=== PATIENT | male | born 1955 | race Caucasian/White ===

== ENCOUNTER → 2017-07-26 | Outpatient (CLI) | payer BC ==
--- NOTE | 2017-07-26 11:37 | NM ---
EXAMINATION TYPE: NM stress cardiolite complete DATE OF EXAM: 07/26/2017 COMPARISON: NONE HISTORY: Chest pain TECHNIQUE: After the intravenous administration of 10.6 mCi Tc 99m Sestamibi - Rest images obtained 50 minutes post injection. The patient exercised using a ARIK protocol and 1 minute prior to peak exercise was injected with 26.7 mCi Tc 99m Sestamibi - Stress images obtained 11 minutes post injecti on. FINDINGS: Targeted heart rate was achieved during performance of the study. Review of stress and rest SPECT collins ges demonstrates no distinct perfusion abnormality. Gated analysis shows normal wall motion with an estimated left ventricular ejection fraction of 67 %. IMPRESSION: No scintigraphic evidence for reversible ischemia, consider echocardiographic correlation for elevate d ejection fraction.
--- NOTE | 2017-07-26 11:52 | EST ---
EXERCISE STRESS AGE: 62 SEX: M HT: 68" WT: 228 PROTOCOL: Cardiolite Stress Test STAGE: II DURATION OF EXERCISE: 7:30 HEART RATE REST: 61 BLOOD PRESSURE REST: 143/92 MAXIMUM HEART RATE ACHIEVED: 150 MAXIMUM BLOOD PRESSURE: 213/95 85% MPHR: 135 100% MPHR: 159 METS: 9.1 INDICATIONS: Chest pain. CLINICAL INFORMATION: Patient was exercised for total period of 7 minutes and 30 seconds. Peak heart rate of 150 was achieved. Maximum blood pressure of 213/95 mmHg was noted. Patient did not complain of any chest pain during the test. Resting EKG shows normal sinus rhythm with normal OK interval and QRS duration and normal ST-T waves. No ST-segment depression suggestive of ischemia was noted. Test was terminated because patient got short of breath. FINAL IMPRESSION: 1. This exercise test is not suggestive of ischemia. 2. Patient's exercise tolerance is normal. 3. Patient did not complain of any anginal pain during the test. 4. The results of the nuclear study will follow. MMKALPANA / DYLONN: [id number] /
== END | disposition home or self-care (01) ==
LOC: RADNMMAIN 07:45
PROVIDERS: ATTEND Family Medicine
DX: R07.9 Chest pain, unspecified (principal); M25.522 Pain in left elbow
CPT/HCPCS: 93017; 78452; A9500

== ENCOUNTER 2020-04-21 17:36 | Emergency (ER) | payer BC ==
[2020-04-21 17:45] VITALS: BP 150/93; PULSE 81; RESP 16; TEMP 98.2
[2020-04-21] MEDS ORDERED: DIPH,PERTUS(ACELL)TETVAC-LF 0.5 ML VIAL IM ONE (17:55)
[2020-04-21] MEDS ORDERED: BACITRACIN OINT 1 EACH PACKET TOPICAL ONE (17:55)
[2020-04-21] MEDS ORDERED: LIDOCAINE 1% INJ 10MG/ML (20 ML MDV) SQ ONE (17:55)
--- NOTE | 2020-04-21 18:21 | ED ---
Wound/Laceration HPI - General Chief Complaint: Wound/Laceration Stated Complaint: Leg injury Time Seen by Provider: 04/21/20 17:49 Source: patient Mode of arrival: wheelchair Limitations: no limitations - History of Present Illness Initial Comments: Patient is a 64-year-old male presenting to emergency Department after he fell 3-4 feet off of a ladder and has a wound to his right lower leg. Patient states he just lost his balance and fell forward and his right lower leg landed on top of the ladder. Patient denies hitting his head, no neck pain, no chest pain or abdominal pain. He states his only discomfort is in his right lower leg from the laceration as well as some mild pain in his right third digit. He has full range of motion of his right hand. He denies being on blood thinners. He denies any other injuries from this fall. He does not remember his last tetanus vaccine. He has no further complaints at this time. - Related Data Home Medications Medication Instructions Recorded Confirmed Levothyroxine Sodium [Synthroid] 100 mcg PO DAILY 04/21/20 04/21/20 Travoprost [Travatan Z 0.004%] 1 drop BOTH EYES HS 04/21/20 04/21/20 Allergies Allergy/AdvReac Type Severity Reaction Status Date / Time No Known Allergies Allergy Verified 04/21/20 18:27 Review of Systems ROS Statement: Those systems with pertinent positive or pertinent negative responses have been documented in the HPI. ROS Other: All systems not noted in ROS Statement are negative. Past Medical History Past Medical History: No Reported History History of Any Multi-Drug Resistant Organisms: None Reported Past Surgical History: No Surgical Hx Reported Past Psychological History: No Psychological Hx Reported Smoking Status: Never smoker Past Alcohol Use History: Occasional Past Drug Use History: Marijuana General Exam - General Exam Comments Initial Comments: GENERAL: Patient is well-developed and well-nourished. Patient is nontoxic and in no acute distress. HEAD: Atraumatic, normocephalic. No hematomas, no signs of basal skull fracture. EYES: Pupils equal round and reactive to light, extraocular movements intact, sclera anicteric, conjunctiva are normal. Eyelids were unremarkable. ENT: TMs normal, nares patent, oropharynx clear without exudates. Moist mucous membranes. NECK: Normal range of motion, supple without lymphadenopathy or JVD. No midline tenderness. LUNGS: Unlabored respirations. Breath sounds clear to auscultation bilaterally and equal. No wheezes rales or rhonchi. HEART: Regular rate and rhythm without murmurs, rubs or gallops. ABDOMEN: Soft, nontender, normoactive bowel sounds. No guarding, no rebound. No masses appreciated. : Deferred MUSCULOSKELETAL: Normal extremities with adequate strength and normal range of motion, no pitting or edema. No clubbing or cyanosis. NEUROLOGICAL: Patient is alert and oriented x 3. Motor and sensory are also intact. Cranial nerves II through XII grossly intact. Symmetrical smile. Normal speech, normal gait. PSYCH: Normal mood, normal affect. SKIN: Warm, Dry, normal turgor, no rashes. Patient has a V shaped wound on the right lower leg that is 6 cm x 6 cm. There is some mild bleeding that is controlled with a bandage. She has a very small abrasion to the left lower leg that does not require any sutures, no active bleeding. Limitations: no limitations Course Vital Signs 04/21/20 17:40 Temperature 98.2 F Pulse Rate 81 Respiratory 16 Rate Blood Pressure 150/93 O2 Sat by Pulse 96 Oximetry Procedures - Laceration Laceration #1 Consent Obtained: verbal consent Indication: laceration Site: lower extremity (Right lower leg) Size (cm): 12 Description: flap, irregular Depth: simple, single layer Anesthetic Used: lidocaine 1% Anesthesia Technique: local infiltration Amount (mls): 8 Pre-repair: irrigated extensively Type of Sutures: nylon Size of Sutures: 4-0 Number of Sutures: 19 Technique: simple, interrupted Patient Tolerated Procedure: well Medical Decision Making - Medical Decision Making Patient is 64-year-old male presenting after he fell and has a 12 cm V-shaped laceration on his right lower leg. He is not on blood thinners. His tetanus vaccine was updated today. No other injuries from this fall. Bleeding was controlled with bandage. Patient's wound was cleaned, closed with 19, 4-0 sutures. Patient tolerate procedure very well. Did apply a dressing as well. He will have sutures removed in approximately 10 days, keep area clean and dry. He is stable for discharge. Patient is agreeable with this plan of care. Return parameters were discussed with the patient he verbalizes understanding. Case discussed with Dr. Pritchett. Disposition Clinical Impression: Laceration of right lower leg, Fall Disposition: HOME SELF-CARE Condition: Stable Instructions (If sedation given, give patient instructions): Care For Your Stitches (ED) Additional Instructions: Please return to the Emergency Department if symptoms worsen or any other concerns. Stitches need to be removed in approximately 10 days. Keep wound clean and dry. May apply topical antibiotic once a day. Is patient prescribed a controlled substance at d/c from ED?: No Referrals: Aleksandar Bone MD [Primary Care Provider] - 1-2 days
== END 2020-04-21 20:02 | disposition home or self-care (01) ==
LOC: EC 17:36
DX: S81.811A Laceration without foreign body, right lower leg, initial encounter (principal); Z79.899 Other long term (current) drug therapy; Z79.890 Hormone replacement therapy; Z23 Encounter for immunization; W11.XXXA Fall on and from ladder, initial encounter; Y92.009 Unspecified place in unspecified non-institutional (private) residence as the place of occurrence of the external cause
CPT/HCPCS: 90715; 99282; 12004; 90471; J2001

== ENCOUNTER → 2020-08-06 | Outpatient (CLI) | payer BC ==
--- NOTE | 2020-08-06 09:58 | FL ---
EXAMINATION TYPE: FL barium swallow DATE OF EXAM: 08/06/2020 CLINICAL HISTORY: Dysphagia. TECHNIQUE: A double contrast esophagram is performed utilizing air and barium. A total of roughly 4 5 seconds of fluoroscopic time was utilized during procedure and 50 images obtained COMPARISON: None FINDINGS: The esophagus shows satisfactory motility and emptying into the stomach. No diverticulum. This is intraluminal mass. Small sliding-type sliding type hiatal Hernia towards end of study. No stricture noted. No significant gastroesophageal reflux was seen duri ng real time performance of this study. IMPRESSION: No significant abnormality is seen to account for patient's symptoms.
== END | disposition home or self-care (01) ==
LOC: RADUSWWP 08:51
PROVIDERS: ATTEND Otolaryngology
DX: R13.10 Dysphagia, unspecified (principal); J31.2 Chronic pharyngitis; M54.2 Cervicalgia
CPT/HCPCS: 74220

== ENCOUNTER 2020-08-20 09:43 | Day surgery (SDC) | payer BC ==
[2020-08-18 16:26] VITALS: BMI 35.2
[2020-08-20 10:37] VITALS: TEMP 98.1
[2020-08-20] MEDS: LACTATED RINGERS 1,000 ML IV SCH ×2 (10:37→11:27)
[2020-08-20] MEDS ORDERED: LIDOCAINE 1% (10MG/ML) FOR IV START INTRADERMA ONE (10:38)
[2020-08-20] MEDS ORDERED: PROPOFOL 10 MG/ML 20 ML VIAL IV ONE (11:28)
[2020-08-20] MEDS ORDERED: LIDOCAINE 1% INJ 10MG/ML (20 ML MDV) ONE (11:28)
--- NOTE | 2020-08-20 11:35 | P.GSHP ---
History of Present Illness H&P Date: 08/20/20 Chief Complaint: GERD This a 65-year-old male who presents today for EGD. He's had issues with GERD. Past Medical History Past Medical History: Eye Disorder, Thyroid Disorder Additional Past Medical History / Comment(s): BILAT GLAUCOMA, FEELS LIKE THERE IS ALWAYS SOMETHING STUCK IN THROAT, HAVING TROUBLE SWALLOWING AT TIMES History of Any Multi-Drug Resistant Organisms: None Reported Past Surgical History: Cholecystectomy, Tonsillectomy Additional Past Surgical History / Comment(s): POLYP REMOVED FROM TONSILS, COLONOSCOPY/EGD Past Anesthesia/Blood Transfusion Reactions: No Reported Reaction Smoking Status: Never smoker - Past Family History Mother Family Medical History: Cancer Medications and Allergies Home Medications Medication Instructions Recorded Confirmed Type Levothyroxine Sodium [Synthroid] 100 mcg PO DAILY 04/21/20 08/18/20 History Travoprost [Travatan Z 0.004%] 1 drop BOTH EYES HS 04/21/20 08/18/20 History Allergies Allergy/AdvReac Type Severity Reaction Status Date / Time No Known Allergies Allergy Verified 08/18/20 16:16 Surgical - Exam Vital Signs Temp Pulse Resp BP Pulse Ox 98.1 F 66 16 167/83 98 08/20/20 10:35 08/20/20 10:35 08/20/20 10:35 08/20/20 10:35 08/20/20 10:35 - General well developed, well nourished, no distress - Eyes PERRL - ENT normal pinna - Neck no masses - Respiratory normal expansion - Cardiovascular Rhythm: regular - Abdomen Abdomen: soft, non tender Assessment and Plan Assessment: GERD. We'll perform EGD.
--- NOTE | 2020-08-20 11:41 | P.OP ---
Date of Procedure: 08/20/20 Preoperative Diagnosis: GERD Postoperative Diagnosis: Antral gastritis Hiatal hernia Esophagitis Procedure(s) Performed: EGD Anesthesia: MAC Surgeon: Ricky Moeller Pathology: other (Antrum, esophagus) Condition: stable Disposition: PACU Description of Procedure: The patient's placed on the endoscopy table in the lateral position. He received IV sedation. The gastroscope placed oropharynx passed in the esophagus and stomach. Scope was placed through the pylorus. The first and second portion of the duodenum appeared normal. Scope was then brought back the antrum this. Mildly inflamed. A biopsies performed. Scope was then retroflexed the meters stomach appeared normal. There was a moderate size sliding hiatal hernia. The GE junction was at 39 cm. The distal esophagus inflamed a biopsies performed. The proximal esophagus appeared normal. The scope was withdrawn for patient.
[2020-08-20 12:02] VITALS: BP 119/77; PULSE 59; RESP 18
== END 2020-08-20 12:14 | disposition home or self-care (01) ==
LOC: ORWHC2ENDO 09:43
PROVIDERS: ATTEND Surgery
DX: K29.50 Unspecified chronic gastritis without bleeding (principal); K21.00 Gastro-esophageal reflux disease with esophagitis, without bleeding; R13.14 Dysphagia, pharyngoesophageal phase; K44.9 Diaphragmatic hernia without obstruction or gangrene; E03.9 Hypothyroidism, unspecified; H40.9 Unspecified glaucoma; Z79.890 Hormone replacement therapy; Z79.899 Other long term (current) drug therapy
CPT/HCPCS: 88305; 43239; J2001; J2704

== ENCOUNTER → 2020-09-04 | Outpatient (CLI) | payer BC ==
[2020-09-04 13:50] LABS: Basophils % (A) 1 %; Eosinophils # (A) 0.2 k/uL (0-0.7); Eosinophils % (A) 2 %; HCT 45.2 % (39.0-53.0); HGB 15.9 gm/dL (13.0-17.5); Lymphocytes # (A) 2.4 k/uL (1.0-4.8); Lymphocytes % (A) 33 %; MCH 30.5 pg (25.0-35.0); MCHC 35.1 g/dL (31.0-37.0); MCV 86.9 fL (80.0-100.0); Mean Platelet Volume 8.3; Monocytes # (A) 0.3 k/uL (0-1.0); Monocytes % (A) 5 %; Neutrophils # (A) 4.1 k/uL (1.3-7.7); Neutrophils % (A) 58 %; Platelet Count 160 k/uL (150-450); RBC 5.19 m/uL (4.30-5.90); RDW 13.1 % (11.5-15.5); WBC 7.2 k/uL (3.8-10.6)
== END | disposition home or self-care (01) ==
LOC: LABWHC1 13:00
PROVIDERS: ATTEND Surgery
DX: Z01.818 Encounter for other preprocedural examination (principal); K21.00 Gastro-esophageal reflux disease with esophagitis, without bleeding
CPT/HCPCS: 36415; 85025; 93005

== ENCOUNTER 2020-09-17 17:59 | Emergency (ER) | payer BC ==
--- NOTE | 2020-09-17 19:47 | ED ---
General Adult HPI - General Chief complaint: Upper Respiratory Infection Stated complaint: SOB Time Seen by Provider: 09/17/20 19:28 Source: patient Mode of arrival: ambulatory Limitations: no limitations - History of Present Illness Initial comments: 65-year-old male presents emergency Department with a chief complaint of cough and congestion. Patient reports he began developing myalgias and generalized fatigue about a days ago and was tested positive for Covid the following day. He states now he is continuing to have the symptoms and is concerned that he might be developing pneumonia. States the cough is continuous nonproductive and is causing him difficulties sleeping. He reports fluctuating fevers that he has been taking Tylenol for. States the last time he took it was at 3 PM today. He does report occasional exertional dyspnea but denies any associated chest pain. No history of smoking, COPD or asthma. He denies any nausea vomiting diarrhea. - Related Data Home Medications Medication Instructions Recorded Confirmed Levothyroxine Sodium [Synthroid] 100 mcg PO DAILY 04/21/20 09/03/20 Travoprost [Travatan Z 0.004%] 1 drop BOTH EYES HS 04/21/20 09/03/20 Fish Oil/Dha/Epa [Fish Oil 1,200 1 each PO DAILY 09/03/20 mg Fish Oil] Multivitamins, Thera [Multivitamin 1 tab PO DAILY 09/03/20 (formulary)] Allergies Allergy/AdvReac Type Severity Reaction Status Date / Time No Known Allergies Allergy Verified 09/17/20 18:03 Review of Systems ROS Statement: Those systems with pertinent positive or pertinent negative responses have been documented in the HPI. ROS Other: All systems not noted in ROS Statement are negative. Past Medical History Past Medical History: Eye Disorder, GERD/Reflux, Thyroid Disorder Additional Past Medical History / Comment(s): BILATERAL GLAUCOMA, esphogeal tear History of Any Multi-Drug Resistant Organisms: None Reported Past Surgical History: Cholecystectomy Additional Past Surgical History / Comment(s): POLYP REMOVED FROM TONSILS, COLONOSCOPY/EGD Past Anesthesia/Blood Transfusion Reactions: No Reported Reaction Past Psychological History: No Psychological Hx Reported Smoking Status: Never smoker Past Alcohol Use History: None Reported Past Drug Use History: Marijuana - Past Family History Mother Family Medical History: Cancer General Exam Limitations: no limitations General appearance: alert, in no apparent distress, obese Head exam: Present: atraumatic, normocephalic, normal inspection Eye exam: Present: normal appearance, PERRL, EOMI Pupils: Present: normal accommodation ENT exam: Present: normal exam, normal oropharynx, mucous membranes moist Neck exam: Present: normal inspection, full ROM. Absent: tenderness, m eningismus Respiratory exam: Present: normal lung sounds bilaterally. Absent: respiratory distress, wheezes, rales, rhonchi, stridor, chest wall tenderness, accessory muscle use Cardiovascular Exam: Present: regular rate, normal rhythm, normal heart sounds GI/Abdominal exam: Present: soft. Absent: distended, tenderness, guarding, rebound Extremities exam: Present: normal inspection, full ROM, normal capillary refill. Absent: tenderness, pedal edema Back exam: Present: normal inspection, full ROM. Absent: tenderness, CVA tenderness (R), CVA tenderness (L) Neurological exam: Present: alert, oriented X3 Psychiatric exam: Present: normal affect, normal mood Skin exam: Present: warm, dry, intact, normal color Course Vital Signs 09/17/20 09/17/20 18:00 20:34 Temperature 98.3 F Pulse Rate 65 78 Respiratory 20 16 Rate Blood Pressure 143/98 149/91 O2 Sat by Pulse 100 98 Oximetry Medical Decision Making - Medical Decision Making 65-year-old male presents to the emergency department with a chief complaint of cough and congestion. On physical examination, patient does not appear to be in any respiratory distress. Vital signs are within normal limits. He does not have any pleuritic chest pain. Patient does fit the criteria for a monoclonal antibody. He did agree to administering it. He was observed for an hour after administration. covid-19 protocol discussed. Advised to return to emergency department if symptoms worsen. Case discussed with - Lab Data Lab Results 09/17/20 Range/Units 18:06 Coronavirus (PCR) Detected A (Not Detectd) Disposition Clinical Impression: COVID-19 Disposition: HOME SELF-CARE Condition: Stable Instructions (If sedation given, give patient instructions): Coronavirus Disease 2019 (COVID-19) Additional Instructions: Please return to the Emergency Department if symptoms worsen or any other concerns. Is patient prescribed a controlled substance at d/c from ED?: No Referrals: Aleksandar Bone MD [Primary Care Provider] - 1-2 days Time of Disposition: 22:27
[2020-09-17] MEDS ORDERED: SODIUM CHLORIDE 0.9% 50 ML IVPB ONE (20:15)
[2020-09-17] MEDS ORDERED: BAMLANIVIMAB (EUA) 700 MG, ETESEVIMAB (EUA) 1,400 MG in SODIUM CHLORIDE 0.9% 50 ML IVPB ONE (20:15)
[2020-09-17 20:35] VITALS: RESP 16
[2020-09-17 22:37] VITALS: BP 159/85; PULSE 68; TEMP 99.1
== END 2020-09-17 22:36 | disposition home or self-care (01) ==
LOC: EC 17:59
DX: U07.1 COVID-19 (principal); K21.9 Gastro-esophageal reflux disease without esophagitis; F12.90 Cannabis use, unspecified, uncomplicated
CPT/HCPCS: 87635; 99285; 96365; Q0245

== ENCOUNTER 2020-10-07 09:30 | Inpatient (IN) | payer BC ==
[2020-10-14] MEDS ORDERED: ACETAMINOPHEN TAB 500 MG TAB PO PRN (05:00)
[2020-10-14] MEDS ORDERED: HEPARIN SODIUM,PORCINE/PF 5,000 UNIT/0.5 ML SYRINGE SQ PRN (05:00)
[2020-10-14] MEDS ORDERED: LIDOCAINE 1% (10MG/ML) FOR IV START INTRADERMA PRN (06:05)
[2020-10-14] MEDS ORDERED: ONDANSETRON 4 MG/2 ML VIAL IVP ONE (06:05)
[2020-10-14] MEDS ORDERED: DEXAMETHASONE SOD PHOSPHATE 4 MG/ML 1 ML VIAL IV ONE (06:05)
[2020-10-14] MEDS ORDERED: MIDAZOLAM 2 MG/2 ML VIAL IV PRN (06:05)
[2020-10-14] MEDS ORDERED: HYDROmorphone 0.5 MG/0.5 ML SYRINGE IVP PRN (07:00)
[2020-10-14] MEDS: LACTATED RINGERS 1,000 ML IV SCH (10:57)
--- NOTE | 2020-10-14 13:20 | P.GSHP ---
History of Present Illness H&P Date: 10/14/20 Chief Complaint: GERD, dysphagia this a 65-year-old male presents today for laparoscopic hiatal hernia. Patient had complaints of GERD and dysphagia. He has a large sliding hiatal hernia. Past Medical History Past Medical History: Eye Disorder, GERD/Reflux, Thyroid Disorder Additional Past Medical History / Comment(s): BILATERAL GLAUCOMA, esophageal tear. Has had CoVid X2, last 09/11/20, states recovered now. History of Any Multi-Drug Resistant Organisms: None Reported Past Surgical History: Cholecystectomy Additional Past Surgical History / Comment(s): POLYP REMOVED FROM TONSILS, COLONOSCOPY/EGD. Past Anesthesia/Blood Transfusion Reactions: No Reported Reaction Past Psychological History: No Psychological Hx Reported Smoking Status: Never smoker Past Alcohol Use History: Rare Past Drug Use History: Marijuana Additional Drug Use History / Comment(s): RARE MARIJUANA USE -LAST USED JUN 2020, AWARE TO REFRAIN FROM USE FOR 24 HOURS PRIOR TO PROCEDURE. - Past Family History Mother Family Medical History: Cancer Medications and Allergies Home Medications Medication Instructions Recorded Confirmed Type Levothyroxine Sodium [Synthroid] 100 mcg PO QAM 04/21/20 10/14/20 History Travoprost [Travatan Z 0.004%] 1 drop BOTH EYES HS 04/21/20 10/14/20 History Fish Oil/Dha/Epa [Fish Oil 1,200 1 each PO DAILY 09/03/20 10/14/20 History mg Fish Oil] Multivitamins, Thera [Multivitamin 1 tab PO DAILY 09/03/20 10/14/20 History (formulary)] Allergies Allergy/AdvReac Type Severity Reaction Status Date / Time No Known Allergies Allergy Verified 10/14/20 10:38 Surgical - Exam Vital Signs Temp Pulse Resp BP Pulse Ox 98 F 88 18 147/92 97 10/14/20 10:40 10/14/20 10:40 10/14/20 10:40 10/14/20 10:40 10/14/20 10:40 - General well developed, well nourished, no distress - Eyes PERRL - ENT normal pinna, normal nares - Neck no masses - Respiratory normal expansion - Cardiovascular Rhythm: regular - Abdomen Abdomen: soft, non tender Assessment and Plan Assessment: GERD Dysphagia Sliding hiatal hernia We'll perform laparoscopic repair
[2020-10-14] MEDS ORDERED: ROCURONIUM 10 MG/ML (5 ML VIAL) IV ONE (13:35)
[2020-10-14] MEDS ORDERED: ESMOLOL 100 MG/10 ML VIAL ONE (13:35)
[2020-10-14] MEDS ORDERED: GLYCOPYRROLATE 0.2 MG/ML 2 ML VIAL ONE (13:35)
[2020-10-14] MEDS ORDERED: LIDOCAINE 1% INJ 10MG/ML (20 ML MDV) ONE ×2 (13:35)
[2020-10-14] MEDS ORDERED: MIDAZOLAM 2 MG/2 ML VIAL ONE (13:35)
[2020-10-14] MEDS ORDERED: SUCCINYLCHOLINE CHLORIDE VIAL 200 MG/10 ML VIAL IV ONE (13:35)
[2020-10-14] MEDS ORDERED: KETAMINE 10 MG/ML 20 ML VIAL ONE (13:35)
[2020-10-14] MEDS ORDERED: PROPOFOL 10 MG/ML 20 ML VIAL IV ONE (13:35)
[2020-10-14] MEDS ORDERED: HYDROmorphone (PF) 1 MG/ML ONE (13:35)
[2020-10-14] MEDS ORDERED: fentaNYL (PF) 50 MCG/ML 2 ML AMP ONE (13:35)
[2020-10-14] MEDS ORDERED: BUPIVACAINE (PF) 0.25% 30 ML VIAL SQ ONE (14:17)
[2020-10-14] MEDS ORDERED: LACTATED RINGERS 1,000 ML IV ONE (14:18)
[2020-10-14] MEDS ORDERED: HYDROmorphone 1 MG/ML 1 ML SYRINGE IVP PRN (15:03)
--- NOTE | 2020-10-14 15:03 | P.OP ---
Date of Procedure: 10/14/20 Preoperative Diagnosis: GERD Postoperative Diagnosis: Sliding hiatal hernia . Procedure(s) Performed: Laparoscopic Kathy fundal plication Anesthesia: LEONARD Surgeon: Ricky Moeller Estimated Blood Loss (ml): 10 Pathology: none sent Condition: stable Disposition: PACU Description of Procedure: The patient was placed on the operating table in the supine position. The patient received general anesthesia. And was placed in dorsal lithotomy position. The patient was prepped and draped in the usual sterile fashion. The skin incision sites were anesthetized with 1% local Xylocaine. The skin was incised in the left periumbilical area and then using a blade less 5 mm trocar under direct visualization panel cavity was entered. After adequate insufflation the laparoscope was then placed into the peritoneal cavity. Next a 5 mm trochars placed in the right epigastric position. Another 5 millimeter trocar the right lateral position. Another 5 millimeter trocar in the left lateral position a 5 mm trocar is placed in the left epigastric position. And then the initial 5 mm trocar was exchanged for a 10 mm trocar. The left lateral lobe liver was retracted. The hernia was seen. The crural defect was then dissected using the Harmonic scissors device. A 360 crural dissection was performed the esophagus stomach was reduced back into the peritoneal Cavity. The crural defect was then closed using 2-0 Ethibond suture. Next the fundus of the stomach was mobilized using the Calvin scissors device. and then a 58- German bougie dilator was placed oropharynx passed into the esophagus and stomach the fundal plication wrap was then performed by grasping the fundus posteriorly and bringing it around the esophagus and stomach fundoplication was then performed using 2-0 Ethibond suture. Care was taken that the fundal location rested over top of the intra-abdominal esophagus. There was no injury seen to the stomach or esophagus. The dilator was then withdrawn. The abdomen was irrigated there is no bleeding seen. The trochars were then withdrawn and then skin incision sites were closed using 3-0 Monocryl suture Steri-Strips are applied. Patient thought procedure well and sent to recovery room in stable condition.
--- NOTE | 2020-10-14 17:16 | FL ---
EXAMINATION TYPE: FL esophagus cervic/pharynx DATE OF EXAM: 10/14/2020 COMPARISON: None HISTORY: Status post Sly fundoplication TECHNIQUE: Single contrast technique is utilized to evaluate the gastroesophageal junction. FINDINGS: There is mild hesitancy of contrast passing through the gastroesophageal junction and ascen ding fundoplication. No persistent severe stenosis is evident. Contrast passes into the stomach to th e duodenum without hesitancy. No suspicious changes to suggest extravasation are evident. Fluoroscopy time: 53 seconds. Images: 16 IMPRESSION: 1. No obstruction. There is mild hesitancy passing through the kidneys on fundoplication. 2. No extravasation of contrast.
[2020-10-14] MEDS: D5-0.45% NACL WITH KCL 20MEQ/L 1,000 ML IV SCH (17:41)
--- NOTE | 2020-10-15 00:27 | P.CONS ---
History of Present Illness - Reason for Consult Consult date: 10/14/20 medical management post op Requesting physician: Ricky Moeller - Chief Complaint chronic GERD - History of Present Illness 65 year old male , hypothyroid and obesity he is here for edvin fundoplication , he reports that since his COVID infection a year ago, he was left with a nagging hacking cough . he started seeing doctors since the cough did not improve, and he went through EGD and other testing, and a recommendation made to him for surgical intervention due to changes in the esophagus from hiatal hernia and GERD. patient tolerated procedure well, denies any chest pain or trouble breathing ,reports minimal abd pain at surgical site, and worse right shoulder pain . he passed urine but no bowel movement yet. Review of Systems Pertinent positives as noted in HPI. All other systems were reviewed and are negative Past Medical History Past Medical History: Eye Disorder, GERD/Reflux, Thyroid Disorder Additional Past Medical History / Comment(s): BILATERAL GLAUCOMA, esophageal tear. Has had CoVid X2, last 09/11/20, states recovered now. History of Any Multi-Drug Resistant Organisms: None Reported Past Surgical History: Cholecystectomy Additional Past Surgical History / Comment(s): POLYP REMOVED FROM TONSILS, COLONOSCOPY/EGD. Past Anesthesia/Blood Transfusion Reactions: No Reported Reaction Past Psychological History: No Psychological Hx Reported Smoking Status: Never smoker Past Alcohol Use History: Rare Past Drug Use History: Marijuana Additional Drug Use History / Comment(s): RARE MARIJUANA USE -LAST USED JUN 2020, AWARE TO REFRAIN FROM USE FOR 24 HOURS PRIOR TO PROCEDURE. - Past Family History Mother Family Medical History: Cancer Medications and Allergies Home Medications Medication Instructions Recorded Confirmed Type Levothyroxine Sodium [Synthroid] 100 mcg PO QAM 04/21/20 10/14/20 History Travoprost [Travatan Z 0.004%] 1 drop BOTH EYES HS 04/21/20 10/14/20 History Fish Oil/Dha/Epa [Fish Oil 1,200 1 each PO DAILY 09/03/20 10/14/20 History mg Fish Oil] Multivitamins, Thera [Multivitamin 1 tab PO DAILY 09/03/20 10/14/20 History (formulary)] Allergies Allergy/AdvReac Type Severity Reaction Status Date / Time No Known Allergies Allergy Verified 10/14/20 10:38 Physical Exam Vitals: Vital Signs Temp Pulse Pulse Resp BP BP Pulse Ox 10/14/20 19:22 98.1 F 75 18 154/84 96 10/14/20 17:36 71 135/95 10/14/20 17:21 64 142/82 10/14/20 17:06 79 156/90 10/14/20 16:53 87 145/90 10/14/20 16:37 97.9 F 75 149/82 96 10/14/20 16:30 97.9 F 71 16 155/87 96 10/14/20 15:25 80 16 161/84 96 10/14/20 15:10 74 16 147/75 97 10/14/20 14:55 84 16 156/76 98 10/14/20 14:40 97.8 F 103 H 22 194/98 98 10/14/20 10:40 98 F 88 18 147/92 97 Intake and Output 10/14/20 10/14/20 10/14/20 06:59 14:59 22:59 Intake Total 1150 1200 Output Total 10 Balance 1140 1200 Intake: IV 1150 600 Oral 600 Output: Estimated Blood Loss 10 Other: Voiding Method Urinal Weight 108.1 kg Constitutional: No acute distress, conversant, pleasant Eyes: Anicteric sclerae, moist conjunctiva, Pupils equal round reactive to light ENMT: NC/AT Oropharynx clear, no erythema, or exudates Neck: Supple, FROM, no masses, or JVD No carotid bruits No thyromegaly Lungs: Clear to auscultation Clear to percussion Normal respiratory effort, no accessory muscle use Cardiovascular: Heart regular in rate and rhythm, No murmurs, gallops, or rubs No peripheral edema Abdominal: Soft, 4 small surgical wounds for scope entrance site, no surrounding induration , no bruising no bleeding Nontender, no guarding, rebound or rigidity Abdomen moving with respiration Normoactive bowel sounds No hepatomegaly, No splenomegaly No palpable mass No abdominal wall hernia noted Skin: Normal temperature, tone, texture, turgor No induration No subcutaneous nodules No rash, lesions No ulcers Extremities: No digital cyanosis No clubbing Pedal pulses intact and symmetrical Radial pulses intact and symmetrical No calf tenderness Psychiatric: Alert and oriented to person, place and time Appropriate affect fair judgement Neuro Muscles Strength 5/5 in all 4 extremities Sensation to light touch grossly present throughout Cranial nerves II-XII grossly intact No focal sensory deficits Lymphatics: no palpable cervical or supraclavicular , or inguinal lymph nodes Assessment and Plan Assessment: hiatal hernia ,Chronic GERD, s/p edvin fundoplication , post op day zero management per surgical team DVT PPX per gen surgery hypothyroid resume home meds check CBC , CMP, magnesium in AM full code Thank you for allowing us to participate in the care of this patient. Do not hesitate to contact us with questions. Someone can be reached from the [facility] hospitalist group at all hours of the day at [phone].
[2020-10-15] MEDS: ACETAMINOPHEN TAB 325 MG TAB PO PRN ×2 (00:35→07:56)
[2020-10-15] MEDS: D5-0.45% NACL WITH KCL 20MEQ/L 1,000 ML IV SCH ×2 (00:36→07:58)
[2020-10-15] MEDS: LACTATED RINGERS 1,000 ML IV SCH (01:54)
[2020-10-15] MEDS ORDERED: LEVOTHYROXINE 100 MCG TAB PO SCH (06:30)
[2020-10-15 07:29] LABS: Basophils % (A) 0 %; Eosinophils % (A) 0 %; HCT 40.4 % (39.0-53.0); HGB 13.7 gm/dL (13.0-17.5); Lymphocytes # (A) 1.9 k/uL (1.0-4.8); Lymphocytes % (A) 18 %; MCH 29.7 pg (25.0-35.0); MCV 87.2 fL (80.0-100.0); Mean Platelet Volume 8.6; Monocytes # (A) 0.6 k/uL (0-1.0); Monocytes % (A) 6 %; Neutrophils # (A) 7.9 k/uL (1.3-7.7); Neutrophils % (A) 74 %; Platelet Count 144 k/uL (150-450); RBC 4.63 m/uL (4.30-5.90); RDW 13.9 % (11.5-15.5); WBC 10.7 k/uL (3.8-10.6)
--- NOTE | 2020-10-15 13:12 | P.DS ---
Providers Date of admission: 10/14/20 10:24 Expected date of discharge: 10/15/20 Attending physician: Ricky Moeller Consults: 10/14/20 15:03 Consult Physician Routine Consulting Provider: Annelise Martínez Consult Reason/Comments: med manage Do you want consulting provider notified?: Yes Primary care physician: Stated None Hospital Course: Discharge diagnosis 1. Sliding hiatal hernia status post laparoscopic Kathy fundoplication Hospital course This is a 65-year-old male with complaints of GERD and dysphagia. He has a known large sliding hiatal hernia. He is status post laparoscopic Kathy fundoplication. He tolerated surgery well. Upper GI shows no evidence of obstruction. There is mild hesitancy passing through the GE junction and ascending fundoplication. No extravasation of contrast. Patient is tolerating the Kathy clear liquid diet. He is passing gas. He has been up and ambulating. Denies any difficulty urinating. He is afebrile. He is stable for discharge. Please refer to chart for any further details. Physician Commutator Repairer note has been reviewed by physician. Signing provider agrees with the documented findings, assessment, and plan of care. Patient Condition at Discharge: Stable Plan - Discharge Summary Discharge Rx Participant: No New Discharge Prescriptions: New Acetaminophen Tab [Tylenol Tab] 650 mg PO Q4H PRN #30 tablet PRN Reason: Pain Continue Levothyroxine Sodium [Synthroid] 100 mcg PO QAM Travoprost [Travatan Z 0.004%] 1 drop BOTH EYES HS Multivitamins, Thera [Multivitamin (formulary)] 1 tab PO DAILY Fish Oil/Dha/Epa [Fish Oil 1,200 mg Fish Oil] 1 each PO DAILY Discharge Medication List Levothyroxine Sodium [Synthroid] 100 mcg PO QAM 04/21/20 [History] Travoprost [Travatan Z 0.004%] 1 drop BOTH EYES HS 04/21/20 [History] Fish Oil/Dha/Epa [Fish Oil 1,200 mg Fish Oil] 1 each PO DAILY 09/03/20 [History] Multivitamins, Thera [Multivitamin (formulary)] 1 tab PO DAILY 09/03/20 [History] Acetaminophen Tab [Tylenol Tab] 650 mg PO Q4H PRN #30 tablet 10/15/20 [Rx] Follow up Appointment(s)/Referral(s): Ricky Moeller MD [STAFF PHYSICIAN] - 1 Week Activity/Diet/Wound Care/Special Instructions: No lifting over 10 pounds You may shower. No soaking or tub baths for 2 weeks Very light activity until you are reevaluated at your follow up appointment with your surgeon No straws or carbonated beverages Discharge Disposition: HOME SELF-CARE
[2020-10-15 13:42] LABS: Hemoglobin A1C 5.8 % (4.0-6.0)
[2020-10-15 14:30] VITALS: BP 133/80; PULSE 64; RESP 14; TEMP 97.6
[2020-10-15 15:34] VITALS: BMI 35.6
[2020-10-15 15:50] LABS: African American GFR (CKD) 109.4 (60.0-200.0); Albumin 3.9 g/dL (3.80-4.90); Albumin/Globulin Ratio 2.17 (1.60-3.17); Anion Gap 14.4 mmol/L (4.00-12.00); BUN/Creat Ratio 18.75 Ratio (12.00-20.00); Calcium 8.7 mg/dL (8.7-10.3); Carbon Dioxide 21.6 mmol/L (21.6-31.8); Globulin 1.8 g/dL (1.6-3.3); Non-African American GFR(CKD) 94.4 (60.0-200.0); Potassium 4.3 mmol/L (3.5-5.5); Total Bilirubin 0.8 mg/dL (0.2-1.2); Total Protein 5.7 g/dL (6.2-8.2)
== END 2020-10-15 14:53 | disposition home or self-care (01) | DRG 328 ==
LOC: 2ORMAIN 10-14 10:24 → 5NMEDONC 10-14 15:13
PROVIDERS: ADMIT Surgery; ATTEND Surgery
PROC: 0DV44ZZ Restriction of Esophagogastric Junction, Percutaneous Endoscopic Approach (ICD-10-PCS; principal; 2020-10-14 12:10)
DX: K44.9 Diaphragmatic hernia without obstruction or gangrene (principal); K21.9 Gastro-esophageal reflux disease without esophagitis; R13.10 Dysphagia, unspecified; E03.9 Hypothyroidism, unspecified; E66.9 Obesity, unspecified; Z68.35 Body mass index [BMI] 35.0-35.9, adult; Z79.890 Hormone replacement therapy; Z20.822 Contact with and (suspected) exposure to COVID-19; Z86.16 Personal history of COVID-19; Z80.9 Family history of malignant neoplasm, unspecified; H40.9 Unspecified glaucoma
CPT/HCPCS: 74210; 80053; 83036; 83735; 85025; 87635

== ENCOUNTER 2022-11-10 22:08 | Emergency (ER) | payer MEDICARE ==
[2022-11-10 22:28] VITALS: TEMP 98.3
[2022-11-10] MEDS ORDERED: LIDOCAINE 1% INJ 10MG/ML (30 ML VIAL-PF) SQ ONE (22:56)
--- NOTE | 2022-11-11 00:17 | ED ---
General Adult HPI - General Chief complaint: Wound/Laceration Stated complaint: Laceration Left leg Time Seen by Provider: 11/10/22 22:50 Source: patient, RN notes reviewed Mode of arrival: ambulatory Limitations: no limitations - History of Present Illness Initial comments: 67-year-old male presents the emergency department with a chief compl aint of left aguiar laceration. Patient reports that he hit his left aguiar on a trailer hitch prior to arrival. He is complaining of increased pain and bleeding to the site. He was able to wrap his leg with the Tylenol and have bleeding controlled. He is up-to-date on his tetanus vaccination. He denies any numbness, tingling, weakness to the extremity. He denies any loss of consciousness, hitting his head, anticoagulant use. - Related Data Home Medications Medication Instructions Recorded Confirmed Levothyroxine Sodium [Synthroid] 100 mcg PO QAM 04/21/20 09/07/21 Travoprost [Travatan Z 0.004%] 1 drop BOTH EYES HS 04/21/20 09/07/21 Fish Oil/Dha/Epa [Fish Oil 1,200 1 each PO DAILY 09/03/20 09/07/21 mg Fish Oil] Multivitamins, Thera [Multivitamin 1 tab PO DAILY 09/03/20 09/07/21 (formulary)] Previous Rx's Medication Instructions Recorded Acetaminophen Tab [Tylenol Tab] 650 mg PO Q4H PRN #30 tablet 10/15/20 Cephalexin [Keflex] 500 mg PO Q6HR #40 cap 11/11/22 HYDROcodone/APAP 5-325MG [Rico 5] 1 each PO Q6HR PRN #12 tab 11/11/22 Sulfamethox-Tmp 800-160Mg [Bactrim 1 each PO Q12HR #20 tab 11/11/22 Ds] Allergies Allergy/AdvReac Type Severity Reaction Status Date / Time No Known Allergies Allergy Verified 11/10/22 22:28 Review of Systems ROS Statement: Those systems with pertinent positive or pertinent negative responses have been documented in the HPI. ROS Other: All systems not noted in ROS Statement are negative. Past Medical History Past Medical History: Eye Disorder, GERD/Reflux, Thyroid Disorder Additional Past Medical History / Comment(s): BILATERAL GLAUCOMA, esophageal tear. Has had CoVid X2, last 09/11/20. History of Any Multi-Drug Resistant Organisms: None Reported Past Surgical History: Cholecystectomy Additional Past Surgical History / Comment(s): POLYP REMOVED FROM TONSILS, COLONOSCOPY/EGD. HIATAL HERNIA REPAIR Past Anesthesia/Blood Transfusion Reactions: No Reported Reaction Past Psychological History: No Psychological Hx Reported Smoking Status: Never smoker Past Alcohol Use History: None Reported Past Drug Use History: Marijuana - Past Family History Mother Family Medical History: Cancer General Exam - General Exam Comments Initial Comments: General: Alert, in no acute distress Head: atraumatic normocephalic. Eyes PERRL, EOMI intact, mucous membranes moist Respiratory: Lungs clear to auscultation bilaterally Cardiovascular: Rate regular rate and rhythm Abdominal: Soft without guarding or rebound Extremities: Normal inspection with full range of motion and normal capillary refill, left aguiar with 4 5 cm x 4.5 cm laceration in a V shape with bleeding controlled. Adipose tissue visualized Neuroogic: alert and oriented 3, CN II-XII intact, able to ambulate with steady gait Skin: warm dry and intact with normal color Limitations: no limitations Course Vital Signs 11/10/22 11/11/22 22:24 00:24 Temperature 98.3 F 98.3 F Pulse Rate 73 79 Respiratory 20 18 Rate Blood Pressure 132/85 128/85 O2 Sat by Pulse 96 99 Oximetry Procedures - Laceration Laceration #1 Consent Obtained: verbal consent Indication: laceration Site: scalp, other (L aguiar ) Depth: simple, single layer Anesthetic Used: lidocaine 1% Anesthesia Technique: local infiltration Amount (mls): 20 Pre-repair: wound explored Type of Sutures: vicryl Size of Sutures: 4-0 Number of Sutures: 21 Technique: simple, interrupted, running Complications: pain, bleeding, nerve injury, allergic reaction Patient Tolerated Procedure: well, no complications Additional Comments: Pt tolerated well with no complications Medical Decision Making - Medical Decision Making Was pt. sent in by a medical professional or institution (, PA, MEDICAL FEE CLERK, urgent care, hospital, or fdc...) When possible be specific @ -[No] Did you speak to anyone other than the patient for history (EMS, parent, family, police, friend...)? What history was obtained from this source @ -[No] Did you review nursing and triage notes (agree or disagree)? Why? @ -[I reviewed and agree with nursing and triage notes] Were old charts reviewed (outside hosp., previous admission, EMS record, old E KG, old radiological studies, urgent care reports/EKG's, fdc records)? Report findings @ -[No old charts were reviewed] Differential Diagnosis (chest pain, altered mental status, abdominal pain women, abdominal pain men, vaginal bleeding, weakness, fever, dyspnea, syncope, headache, dizziness, GI bleed, back pain, seizure, CVA, palpatations, mental h ealth, musculoskeletal)? @ -[not applicable] EKG interpreted by me (3pts min.). @ -[As above] X-rays interpreted by me (1pt min.). @ -[None done] CT interpreted by me (1pt min.). @ -[None done] U/S interpreted by me (1pt. min.). @ -[None done] What testing was considered but not performed or refused? (CT, X-rays, U/S, labs)? Why? @ -[None] What meds were considered but not given or refused? Why? @ -[None] Did you discuss the management of the patient with other professionals (professionals i.e. , PA, MEDICAL FEE CLERK, lab, RT, psych nurse, social group worker, transmitter engineer, teacher, president and chief commercial officer, mental health case manager)? Give summary @ -[No] Was smoking cessation discussed for >3mins.? @ -[No] Was critical care preformed (if so, how long)? @ -[No] Were there social determinants of health that impacted care today? How? (Homelessness, low income, unemployed, alcoholism, drug addiction, transportation, low edu. Level, literacy, decrease access to med. care, snf, rehab)? @ -[No] Was there de-escalation of care discussed even if they declined (Discuss DNR or withdrawal of care, Hospice)? DNR status @ -[No] What co-morbidities impacted this encounter? (DM, HTN, Smoking, COPD, CAD, Cancer, CVA, ARF, Chemo, Hep., AIDS, mental health diagnosis, sleep apnea, morbid obesity)? @ -[None] Was patient admitted / discharged? Hospital course, mention meds given and route, prescriptions, significant lab abnormalities, going to OR and other pertinent info. @ -Discharged. This is a 67-year-old male who presents to the emergency department with Laceration. Patient had a thorough history and physical exam performed on the ED. Physical exam is essentially unremarkable. Heart rate regular rate and rhythm, lungs are to auscultation bilaterally, abdomen soft and nontender. Patient able to ambulate with a steady gait. No focal neuro deficits noted. Left aguiar with 4 cm x 4 cm V-shaped laceration adipose tissue visualized. Patient had 21 sutures placed for which she tolerated well. Distal NBI remains intact. I discussed the results in detail with the patient verbalized understanding and all questions were addressed. Patient was given Rico for symptomatic relief on the ED. Return precautions were discussed at length. Patient discharged in stable condition. Case discussed with Dr. Camacho [facility] who agrees with plan of care Undiagnosed new problem with uncertain prognosis? @ -[No] Drug Therapy requiring intensive monitoring for toxicity (Heparin, Nitro, Insulin, Cardizem)? @ -[No] Were any procedures done? @ -[No] Diagnosis/symptom? @ -Left aguiar laceration Acute, or Chronic, or Acute on Chronic? @ -Acute Uncomplicated (without systemic symptoms) or Complicated (systemic symptoms)? @ -uncomplicated Side effects of treatment? @ -[No] Exacerbation, Progression, or Severe Exacerbation? @ -[No] Poses a threat to life or bodily function? How? (Chest pain, [place], [place], pneumonia, PE, COPD, DKA, ARF, appy, cholecystitis, CVA, Diverticulitis, Homicidal, S uicidal, threat to staff... and all critical care pts) @ -Low likelihood Disposition Clinical Impression: Laceration Disposition: HOME SELF-CARE Condition: Stable Instructions (If sedation given, give patient instructions): Care For Your Stitches (ED), Stitches Removal (ED) Additional Instructions: Please follow-up with primary care by next monday to ensure proper healing Please return to the nearest emergency department is symptoms worsen or persist Prescriptions: Sulfamethox-Tmp 800-160Mg [Bactrim Ds] 1 each PO Q12HR #20 tab Cephalexin [Keflex] 500 mg PO Q6HR #40 cap HYDROcodone/APAP 5-325MG [Rico 5] 1 each PO Q6HR PRN #12 tab PRN Reason: Pain Is patient prescribed a controlled substance at d/c from ED?: Yes If prescribed controlled substance>3 days was MAPS reviewed?: Prescribed <3 Days Referrals: Aleksandar Bone MD [Primary Care Provider] - 1-2 days Time of Disposition: 00:20
[2022-11-11 00:24] VITALS: BP 128/85; PULSE 79; RESP 18
== END 2022-11-11 00:25 | disposition home or self-care (01) ==
LOC: EC 22:08
DX: S81.812A Laceration without foreign body, left lower leg, initial encounter (principal); E07.9 Disorder of thyroid, unspecified; F12.90 Cannabis use, unspecified, uncomplicated; Z79.890 Hormone replacement therapy; Z86.16 Personal history of COVID-19; W26.8XXA Contact with other sharp object(s), not elsewhere classified, initial encounter
CPT/HCPCS: 99282; 12002; J2001

== ENCOUNTER → 2023-08-09 | Outpatient (CLI) | payer MEDICARE ==
[2023-08-09 15:36] LABS: African American GFR (CKD) >90 (>60 ml/min/1.73 sqM); Blood Urea Nitrogen 28 mg/dL (9-20); Non-African American GFR(CKD) 90 (>60 ml/min/1.73 sqM)
--- NOTE | 2023-08-10 08:49 | CT ---
EXAMINATION TYPE: CT soft tissue neck w con CT DLP: 748.20 mGycm, Automated exposure control for dose reduction was used. DATE OF EXAM: 08/09/2023 4:15 PM COMPARISON: None. CLINICAL INDICATION:Male, 68 years old with history of R22.1 LOCALIZED SWELLING, MASS AND LUMP, NECK; PHH, left side neck/ cheek swelling. TECHNIQUE: Standard enhanced CT of the neck. Axial sections with coronal and sagittal reformats were obtained. Contrast used:100 mL of Isovue 300 with IV Contrast, (None if empty) Oral contrast used: (None if empty) FINDINGS: Brain: Visualized portions are grossly unremarkable. Orbits: Unremarkable Sinuses: Grossly unremarkable. Spaces of the neck: Asymmetric edematous left parotid gland. No organizing fluid collection or mass i dentified. Musculoskeletal: No acute osseous pathology. Lymph nodes: Multiple nonenlarged lymph nodes are seen along both anterior chains of the neck. Vascular structures: Patent with atherosclerotic plaque of the internal carotid arteries at the bifur cation. Thoracic Inlet/airway: Airway is patent. The lung apices are clear. Soft tissues/Thyroid: Thyroid and remainder of the soft tissues are unremarkable. Other: none. IMPRESSION Swelling of the left parotid gland, correlate for parotitis . No organizing fluid collection or mass.
== END | disposition home or self-care (01) ==
LOC: RADCTMAIN 14:48
PROVIDERS: ATTEND Otolaryngology
DX: R22.1 Localized swelling, mass and lump, neck (principal)
CPT/HCPCS: 82565; 84520; 70491; 36415; Q9967

== ENCOUNTER → 2023-12-04 | Outpatient (CLI) | payer MEDICARE ==
--- NOTE | 2023-12-04 13:58 | MR ---
INDICATION: Patient age:Male; 68 years old; Reason for study: K11.8 parotid mass; PHH. COMPARISON: CT neck 08/09/2023 . TECHNIQUE: Multi planar, multi sequence imaging was performed of the neck soft tissues before and af ter the uneventful administration of 10 cc of Gadavist intravenously. FINDINGS: The visualized sinuses and mastoid air cells appear unremarkable. The skull base appears intact. The sella turcica and cavernous sinuses appear intact and symmetric. The visualized brain appears unremar kable. The fossa of Rosenmuller is normal. The submandibular and sublingual space contents appear intact. Th e right parotid gland is unremarkable. There is an multiseptated multicystic T2 hyperintense lesion i dentified in the deep portion of the left parotid gland. This demonstrates T1 hypointensity. There is extension into the left nursing informatics clinical analyst space. This grossly measures 5.4 x 2.8 x 6.5 cm in TV, AP, CC dim ensions (series 801, image 27). There is some septal enhancement demonstrated on postcontrast imaging . No sign of carotid artery encasement or compression. The epiglottis, aryepiglottic folds, and piriform sinuses are normal. The vallecula appears normal. T he larynx and trachea appear normal. The thyroid lobes appear intact. The carotid space contents are normal. There is no deep cervical chain adenopathy observed. The jugul odigastric regions appear intact. The paravertebral space is normal. The supraclavicular regions appear intact. The visualized mediastinum is normal. The visualized lungs appear intact. Osseous structures appear unremarkable. IMPRESSION: Deep left parotid mass with extension into the nursing informatics clinical analyst space measuring up to 6.5 cm. MR imaging ch aracteristics suggestive of a lymphangioma.
== END | disposition home or self-care (01) ==
LOC: RADMRIMAIN 07:29
PROVIDERS: ATTEND Otolaryngology
DX: K11.8 Other diseases of salivary glands (principal)
CPT/HCPCS: 70543; A9585